=== PATIENT | male | born 1940 | race Caucasian/White ===

== ENCOUNTER 2019-03-24 15:58 | Emergency (ER) | payer MEDICARE ==
[~2019-03-24] VITALS: Ht 160 cm; Wt 59.9 kg
--- NOTE | 2019-03-24 16:34 | NUR ---
ED Nurse Note: Pt slipped and fell on ground level 1 hr prior to arrival, hit his L side. Skin tear on L forearm noted, no active bleeding. No head trauma, No LOC. Pain on L hip and L thigh 3/10 nadeem. AOx4, VSS. Will cont to monitor.
--- NOTE | 2019-03-24 16:42 | Emergency Room Report ---
History of Present Illness General Chief Complaint: Multiple Trauma/Fall Source: Patient, Medical Record Present Illness HPI Patient presents after fall. He has pain in his left hip and unable to ambulate. In addition he scraped his left forearm and peeled back thr skin. He is not sure when his last tetanus vaccination was. He grew up in [place]. The pain is fairly severe when he tries to walk 7-10/10 but when he is resting his leg is 3/10 and aching. He denies any numbness. There is no syncope or loss of consciousness. The pain starts in his R hip area and gluteal area. It radiates slightly up higher towards the lower back. He also complains about shoulder pain on the left-hand side. Move his arm about without difficulty. This pain radiates somewhat towards his neck. The neck is not tender. He is chronic knee pain and is scheduled to have knee replacement surgery soon. No fevers, chills, chest pain, palpitations, nausea, vomiting, diarrhea, dysuria , abdominal pain, shortness of breath, depression, visual changes, headache. Allergies: Coded Allergies: No Known Allergies (Unverified , 03/24/19) Patient History Social History: Denies: smoking Social History Narrative At home Reviewed Nursing Documentation: PMH: Agreed; PSxH: Agreed Nursing Documentation-PMH History Of Psychiatric Problem: Yes - Depression Review of Systems All Other Systems: negative except mentioned in HPI Physical Exam Vital Signs Date Time Temp Pulse Resp B/P (MAP) Pulse Ox O2 Delivery O2 Flow Rate FiO2 03/24/19 16:20 98.1 91 18 119/72 (88) 94 Room Air Sp02 EP Interpretation: reviewed, normal General Appearance: well appearing, no apparent distress, GCS 15 Head: normocephalic, atraumatic Eyes: bilateral eye normal inspection, bilateral eye PERRL, bilateral eye EOMI ENT: hearing grossly normal, normal voice, moist mucus membranes Neck: full range of motion, supple, no bony tend Respiratory: chest non-tender, lungs clear, normal breath sounds, no respiratory distress, speaking full sentences Cardiovascular #1: regular rate, rhythm Cardiovascular #2: 2+ radial (R), 2+ dorsalis pedis (L) Gastrointestinal: normal inspection, normal bowel sounds, non tender Musculoskeletal: back normal, no calf tenderness, pelvis stable, other - Arnold to palpation left hip and pelvis area with stability. Passive range of motion without much discomfort. No shortening or external rotation -left shoulder with good active range of motion without any point tenderness in the joint or clavicle or scapula Neurologic: alert, oriented x3, motor strength/tone normal, DTRs symmetric, sensory intact Psychiatric: mood/affect normal Skin: warm/dry, other - Skin tear left forearm Medical Decision Making Diagnostic Impression: Primary Impression: Multiple injuries due to trauma Additional Impressions: Contusion of left hip Qualified Codes: S70.02XA - Contusion of left hip, initial encounter Skin tear Left shoulder strain Qualified Codes: S46.912A - Strain of unspecified muscle, fascia and tendon at shoulder and upper arm level, left arm, initial encounter ER Course Patient presents post fall with left hip pain. Differential includes hip fracture, hip contusion, acetabular fracture amongst others. He also has a skin tear needs to have tetanus cleaning and Steri-Strips. The patient will also be treated with Motrin and [place]. X-ray pelvis and hip without fracture. The skin flap was cleaned dressed Steri-Strips applied. Bacitracin was applied. Repeat exam shows that the pelvis is stable. There is no significant issue tenderness. Patient still has pain but is able to sit and stand. Is more pain when he is attempting to weight-bear. Discussed the possibility of hairline fracture with patient and his daughter. Specifically this may take several days in order for it to show up if it is there. 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 Patient is improved. Patient stable for outpatient observation and treatment. Other X-Ray Diagnostic Results Other X-Ray Diagnostic Results : X-Ray ordered: pelvis L hip # of Views/Limited Vs Complete: 3 View Indication: Pain EP Interpretation: Yes Interpretation: no dislocation, no soft tissue swelling, no fractures Impression: Other Electronically Signed by: Electronically signed by Hector Yao MD Last Vital Signs Date Time Temp Pulse Resp B/P (MAP) Pulse Ox O2 Delivery O2 Flow Rate FiO2 03/24/19 18:59 98.1 80 20 121/79 99 Nasal Cannula Status: improved Disposition: HOME, SELF-CARE Condition: Improved Scripts Bacitracin (Bacitracin) 28.4 Gm Oint...g. 1 APPLIC TOPIC BID, #20 GM Prov: Hector Yao MD 03/24/19 Methocarbamol* (ROBAXIN*) 500 Mg Tablet 500 MG PO TID, #10 TAB 0 Refills Prov: Hector Yao MD 03/24/19 Ibuprofen* (MOTRIN*) 600 Mg Tablet 600 MG ORAL Q6H PRN for For Pain, #20 TAB 0 Refills Prov: Hector Yao MD 03/24/19 Hydrocodone Bit/Acetaminophen 5-325* (NORCO 5-325*) 1 Each Tablet 1 TAB ORAL Q6H PRN for For Pain, #10 TAB 0 Refills Prov: Hector Yao MD 03/24/19 Hector Yao MD Mar 24, 2019 16:42
[2019-03-24] MEDS ORDERED: Tetanus/Diptheria/Pertussis IM ONE (16:45)
[2019-03-24] MEDS ORDERED: HYDROcodone/Acetamin 5/325 tab PO ONE (16:45)
[2019-03-24] MEDS ORDERED: Neosporin Oint Ud Pkt TOP ONE (16:45)
--- NOTE | 2019-03-24 16:48 | NUR ---
ED Nurse Note: Pt down to X-ray for imaging.
--- NOTE | 2019-03-24 17:09 | NUR ---
ED Nurse Note: Pt is back from X-ray. No sign of acute distress.
[2019-03-24 17:11] VITALS: BP 116/77
--- NOTE | 2019-03-24 18:00 | Diagnostic Imaging Report ---
EXAM: XR Left Hip With Pelvis When Performed, 2 or 3 Views CLINICAL HISTORY: TRAUMA TECHNIQUE: Two or three views of the left hip, with pelvis when performed. COMPARISON: No relevant prior studies available. FINDINGS: Bones/joints: Diffuse osteopenia. Lumbosacral spondylosis. No acute fracture. No dislocation. Soft tissues: Unremarkable. IMPRESSION: 1. No acute abnormality. 2. Diffuse osteopenia. 3. Lumbosacral spondylosis.
[2019-03-24] MEDS ORDERED: IBUPROFEN600 MG ORAL (18:45)
[2019-03-24] MEDS ORDERED: ROBAXIN500 MG PO (18:45)
[2019-03-24] MEDS ORDERED: NORCO 5-325 TA1 EACH ORAL (18:45)
[2019-03-24] MEDS ORDERED: BACITRACIN15 GM TOPIC (18:45)
[2019-03-24 18:59] VITALS: BP 121/79
--- NOTE | 2019-03-24 18:59 | NUR ---
ER DISCHARGE NOTE: Patient is cleared to be discharged per ERMD, pt is aox4, on room air, with stable vital signs. pt was given dc and prescription instructions, pt was able to verbalize understanding, pt id band removed. pt is able to ambulate with steady gait. pt took all belongings.
== END 2019-03-24 18:59 | disposition home or self-care (01) ==
LOC: EMR 16:59
DX: S70.02XA Contusion of left hip, initial encounter (principal); S46.912A Strain of unspecified muscle, fascia and tendon at shoulder and upper arm level, left arm, initial encounter; S51.812A Laceration without foreign body of left forearm, initial encounter; X58.XXXA Exposure to other specified factors, initial encounter; Y92.9 Unspecified place or not applicable; G89.29 Other chronic pain; Z23 Encounter for immunization
CPT/HCPCS: 73502; 90471; 90715; 99283